=== PATIENT | male | born 1950 | race Caucasian/White ===

== ENCOUNTER 2020-10-16 12:59 | Emergency (ER) | payer OTHER | END 2020-10-16 13:52 | disposition home or self-care (01) | LOC: BURERS 12:59 | DX: H81.10 Benign paroxysmal vertigo, unspecified ear (principal); I10 Essential (primary) hypertension; F17.210 Nicotine dependence, cigarettes, uncomplicated; I25.10 Atherosclerotic heart disease of native coronary artery without angina pectoris; Z79.899 Other long term (current) drug therapy ==

== ENCOUNTER 2022-05-12 23:17 | Emergency (ER) | payer OTHER ==
[2022-05-12] MEDS ORDERED: Famotidine/PF 20 mg/2ml Vial ONE (23:44)
[2022-05-12] MEDS ORDERED: methylPREDNISolone Sod Succ/PF 125 MG/2 ML VIAL ONE (23:45)
[2022-05-12] MEDS ORDERED: Tranexamic Acid 1,000 MG/10 ML VIAL ONE (23:45)
[2022-05-12] MEDS ORDERED: diphenhydrAMINE 50 MG/ML VIAL ONE (23:45)
== END 2022-05-12 23:55 | disposition short-term general hospital (02) ==
LOC: BURERS 23:17
DX: T78.3XXA Angioneurotic edema, initial encounter (principal); I10 Essential (primary) hypertension; I25.10 Atherosclerotic heart disease of native coronary artery without angina pectoris; F17.210 Nicotine dependence, cigarettes, uncomplicated
CPT/HCPCS: 96374; 96375; J1200; J2930; S0028

== ENCOUNTER 2022-06-27 22:19 | Emergency (ER) | payer MEDICARE, OTHER ==
[2022-06-27 23:17] LABS: #Basophils 0.1 thou/uL (0.0-0.2); #Eosinphils 0.5 thou/uL (0.0-0.7); #Lymphocytes 1.4 thou/uL (1.20-3.40); %Basophils 1.2 % (0.0-1.0); %Lymphocytes 13.9 % (21.0-51.0); %Monocytes 9.9 % (0.0-10.0); %Neutrophils 70.1 % (42.0-75.0); Hemoglobin 18.7 g/dL (14.0-18.0); Mean Corpuscular HGB CONC 34.1 g/dL (32.0-36.0); Mean Corpuscular Hemoglobin 31.5 pg (27.0-31.0); Mean Corpuscular Volume 92.5 fl (78.0-98.0); Platelet Count 246 10x3/uL (130-400); RBC Distribution Width 13.9 % (11.5-14.5); Red Blood Cell (RBC) Count 5.91 mill/uL (4.70-6.10); White Blood Cell (WBC) Count 9.9 10x3/uL (4.8-10.8)
[2022-06-27 23:22] LABS: INR-International Normal Ratio 1.1; Prothrombin Time 14.3 sec (12.0-14.7)
[2022-06-27 23:23] LABS: PTT 35.5 sec (22.9-36.1)
[2022-06-27 23:35] LABS: ALT (SGPT) 23 U/L (8-55); AST (SGOT) 16 U/L (5-34); Albumin 4.3 g/dL (3.4-4.8); Alkaline Phosphatase 136 U/L (40-110); Anion Gap 18 mmol/L (10-20); BUN (Urea Nitrogen) 11 mg/dL (8.4-25.7); Bilirubin, Total 0.7 mg/dL (0.2-1.2); Calc. Creatinine Clearance 0 mL/min (70-130); Calcium 10.6 mg/dL (7.8-10.44); Carbon Dioxide 24 mmol/L (23-31); Chloride 99 mmol/L (98-107); Estimated GFR 68; Globulin 3.1 g/dL (2.4-3.5); Glucose 117 mg/dL (83-110); Magnesium 1.9 mg/dL (1.6-2.6); Potassium 4.2 mmol/L (3.5-5.1); Protein, Total 7.4 g/dL (5.8-8.1); Sodium 137 mmol/L (136-145)
[2022-06-27] MEDS ORDERED: Piperacillin/Tazobactam 3.375 GM VIAL ONE (23:51)
[2022-06-27] MEDS ORDERED: Sodium Chloride 0.9% 100 ML ONE (23:51)
[2022-06-27] MEDS ORDERED: Furosemide 40 MG/4 ML VIAL ONE (23:51)
[2022-06-27] MEDS ORDERED: Vancomycin 1 GM VIAL ONE (23:51)
[2022-06-28 01:20] LABS: SARS-CoV-2 NAA Rapid Test Not Detected (NotDetected)
[2022-06-28 02:13] LABS: Lactic Acid 2.3 mmol/L (0.5-2.2)
[2022-06-28] MEDS ORDERED: Bacitracin 1 PK ONE (09:06)
== END 2022-06-28 09:45 | disposition short-term general hospital (02) ==
LOC: BURERS 22:19
DX: S61.401A Unspecified open wound of right hand, initial encounter (principal); N50.89 Other specified disorders of the male genital organs; I11.0 Hypertensive heart disease with heart failure; I50.9 Heart failure, unspecified; I25.10 Atherosclerotic heart disease of native coronary artery without angina pectoris; I25.2 Old myocardial infarction; Z20.822 Contact with and (suspected) exposure to COVID-19; Z79.899 Other long term (current) drug therapy; X58.XXXA Exposure to other specified factors, initial encounter
CPT/HCPCS: 71045; 80053; 83605; 83735; 83880; 84484; 85025; 85610; 85730; 86140; 87040; 93005; 94760; U0002; 36415; 96365; 96367; 96375; J1940; J2543; J3370; J3490